=== PATIENT | male | born 1960 | race Caucasian/White ===

== ENCOUNTER 2020-03-19 10:46 | Emergency (ER) | payer MEDICAID ==
[2020-03-19 10:53] VITALS: BP 136/91
--- NOTE | 2020-03-19 12:38 | ED Physician Documentation ---
History of Present Illness - Stated complaint Stated Complaint: MALE - Chief complaint Chief Complaint: General - History obtained from History obtained from: Patient - History of Present Illness Timing: How many days ago (3) - Additonal information Additional information: 59-year-old male otherwise previously well has developed acute hemorrhoidal pain. He states he has had hemorrhoids periodically they have never bothered him like this. He states that about 3 days ago he started having severe pain associated with hemorrhoids that are stuck out and firm. No matter what he is put on them they have they hurt. He took a pain pill that someone gave him and it barely helped. Review of Systems Constitutional: denies: Fever Respiratory: denies: Cough GI: denies: Vomiting : denies: Dysuria Musculoskeletal: denies: Neck pain, Back pain, Extremity pain PD PAST MEDICAL HISTORY - Past Medical History Past Medical History: No - Past Surgical History Past Surgical History: No - Present Medications Home Medications: Ambulatory Orders Medication Instructions Recorded Confirmed Hydrocortisone [Anusol-Hc] 1 gm RC BID PRN #30 cream..g. 03/19/20 Oxycodone HCl/Acetaminophen 1 - 2 each PO Q6H PRN #14 tablet 03/19/20 [Percocet 5-325 mg Tablet] - Allergies Allergies/Adverse Reactions: Allergies Allergy/AdvReac Type Severity Reaction Status Date / Time No Known Drug Allergies Allergy Verified 03/19/20 10:53 - Social History Does the pt smoke?: Yes Smoking Status: Current every day smoker Does the pt drink ETOH?: Yes Does the pt have substance abuse?: No - POLST Patient has POLST: No PD ED PE NORMAL - Vitals Vital signs reviewed: Yes (hypertensive ) - General General: Alert and oriented X 3, No acute distress, Well developed/nourished - HEENT HEENT: Atraumatic, PERRL, EOMI - Respiratory Respiratory: No respiratory distress - Rectal Rectal: Other (There are 3 external hemorrhoids 2 of them appear thrombosed and are extremely tender the third appears to be a tag. There is no blood involved and the thrombosed hemorrhoids or not reducible.) - Derm Derm: Normal color, Warm and dry, No rash - Extremities Extremities: No deformity, No edema - Neuro Neuro: Alert and oriented X 3, routing equipment tender 2-12 intact, No motor deficit, No sensory deficit, Normal speech Eye Opening: Spontaneous Motor: Obeys Commands Verbal: Oriented GCS Score: 15 - Psych Psych: Normal mood, Normal affect Results - Vitals Vitals: Vital Signs - 24 hr 03/19/20 10:51 Temperature 36.7 C Heart Rate 74 Respiratory 16 Rate Blood Pressure 136/91 H O2 Saturation 97 Oxygen O2 Source Room air PD MEDICAL DECISION MAKING - ED course Complexity details: reviewed old records, considered differential, d/w patient ED course: 59-year-old male with thrombosed hemorrhoids that are more than 72 hours old. I discussed with the patient the usual time course of resolution of thrombosed hemorrhoid and the timing of a visit for this if it occurs again. I discussed with the patient reduction of his hemorrhoids when they are out and especially after hard bowel movement and I have encouraged him to use hydrocortisone when doing that. Departure - Departure Disposition: 01 Home, Self Care Clinical Impression: Thrombosed external hemorrhoids Condition: Stable Instructions: ED Hemorrhoids, ANUSOL-HC Suppositories Follow-Up: [facility] [Provider Group] Prescriptions: Hydrocortisone [Anusol-Hc] 1 gm RC BID PRN #30 cream..g. PRN Reason: Hemorrhoids Oxycodone HCl/Acetaminophen [Percocet 5-325 mg Tablet] 1 - 2 each PO Q6H PRN #14 tablet PRN Reason: pain
== END 2020-03-19 12:57 | disposition home or self-care (01) ==
LOC: ED 10:46
DX: K64.5 Perianal venous thrombosis (principal); K64.4 Residual hemorrhoidal skin tags; F17.200 Nicotine dependence, unspecified, uncomplicated; R03.0 Elevated blood-pressure reading, without diagnosis of hypertension
CPT/HCPCS: 99282; 99284

== ENCOUNTER 2020-03-20 07:25 | Emergency (ER) | payer MEDICAID ==
[2020-03-20] MEDS ORDERED: LIDOCAINE JELLY 2% 6 ML JEL.PF.APP TOP STA (07:42)
--- NOTE | 2020-03-20 07:45 | ED Physician Documentation ---
History of Present Illness - Stated complaint Stated Complaint: MALE - Chief complaint Chief Complaint: Allergic Rx - History obtained from History obtained from: Patient, Family - History of Present Illness Timing: How many days ago (4) - Additonal information Additional information: 59-year-old male developed severe rectal pain about 4 days ago related to a thrombosed hemorrhoid. He took 1 pain pill at that time and he has not had a bowel movement since. He came to the emergency department yesterday was diagnosed with the thrombosed hemorrhoid and was prescribed more pain medication. He comes in this morning complaining of constipation for 4 days and severe rectal pain. He has been straining at the commode without success. Review of Systems Constitutional: denies: Fever Eyes: denies: Decreased vision Ears: denies: Ear pain Nose: denies: Congestion Throat: denies: Sore throat Respiratory: denies: Cough GI: reports: Constipation. denies: Abdominal Pain, Nausea, Vomiting : denies: Dysuria, Frequency Skin: denies: Rash Musculoskeletal: denies: Neck pain, Back pain, Extremity pain PD PAST MEDICAL HISTORY - Past Surgical History Past Surgical History: No - Present Medications Home Medications: Ambulatory Orders Medication Instructions Recorded Confirmed Hydrocortisone [Anusol-Hc] 1 gm RC BID PRN #30 cream..g. 03/19/20 Oxycodone HCl/Acetaminophen 1 - 2 each PO Q6H PRN #14 tablet 03/19/20 [Percocet 5-325 mg Tablet] Lidocaine HCl [Alocane Emergency 2 ml TP Q4HR PRN #75 gel..ml. 03/20/20 Burn] - Allergies Allergies/Adverse Reactions: Allergies Allergy/AdvReac Type Severity Reaction Status Date / Time No Known Drug Allergies Allergy Verified 03/20/20 07:29 - Social History Does the pt smoke?: Yes Smoking Status: Current every day smoker Does the pt drink ETOH?: Yes Does the pt have substance abuse?: No - POLST Patient has POLST: No PD ED PE NORMAL - Vitals Vital signs reviewed: Yes (Hypertensive) - General General: Alert and oriented X 3, Well developed/nourished, Other (Appears to be in pain with casino games dealer tone and flattened affect) - HEENT HEENT: Atraumatic, PERRL, EOMI - Respiratory Respiratory: No respiratory distress - Abdomen Abdomen: Soft, Non tender, No organomegaly - Derm Derm: Normal color, Warm and dry, No rash - Extremities Extremities: No deformity, No edema - Neuro Neuro: Alert and oriented X 3, warehouse selector 2-12 intact, No motor deficit, No sensory deficit, Normal speech Eye Opening: Spontaneous Motor: Obeys Commands Verbal: Oriented GCS Score: 15 - Psych Psych: Normal mood Results - Vitals Vitals: Vital Signs - 24 hr 03/20/20 03/20/20 03/20/20 07:29 09:18 11:59 Temperature 36.4 C L 37.4 C Heart Rate 95 72 72 Respiratory 24 22 18 Rate Blood Pressure 165/71 H 125/82 H 133/72 H O2 Saturation 98 99 100 Oxygen O2 Source Room air PD MEDICAL DECISION MAKING - ED course Complexity details: reviewed results, re-evaluated patient, considered differential, d/w patient, d/w family ED course: Patient was administered lidocaine jelly to the rectum and a oil retention enema was administered without relief and a subsequent soapsuds enema was administered and eventually had significant relief. Patient feels much improved at the time of discharge. I have asked patient to stop the narcotic pain reliever and we have provided some lidocaine for him to use at home as he is having significant rectal pain with a thrombosed hemorrhoid. Departure - Departure Disposition: 01 Home, Self Care Clinical Impression: Constipation Qualifiers: Constipation type: drug induced constipation Qualified Code(s): K59.03 - Drug induced constipation Condition: Stable Instructions: ED Constipation Follow-Up: [facility] [Provider Group] Prescriptions: Lidocaine HCl [Alocane Emergency Burn] 2 ml TP Q4HR PRN #75 gel..ml. PRN Reason: Rectal Pain Discharge Date/Time: 03/20/20 12:03
[2020-03-20 12:00] VITALS: BP 133/72
== END 2020-03-20 12:03 | disposition home or self-care (01) ==
LOC: ED 07:25
DX: K59.03 Drug induced constipation (principal); T40.695A Adverse effect of other narcotics, initial encounter; K64.5 Perianal venous thrombosis; F17.200 Nicotine dependence, unspecified, uncomplicated
CPT/HCPCS: 99285

== ENCOUNTER 2020-03-20 16:18 | Inpatient (IN) | payer MEDICAID ==
[2020-03-20] MEDS ORDERED: HYDROmorphone 1 MG/ML CARPUJECT IVP STA ×2 (16:35→17:29)
[2020-03-20] MEDS ORDERED: ONDANSETRON 4 MG/2 ML VIAL IVP STA (16:35)
[2020-03-20] MEDS ORDERED: KETOROLAC 30 MG/ML VIAL IVP STA (16:35)
--- NOTE | 2020-03-20 16:36 | ED Physician Documentation ---
PD HPI ABD PAIN - Stated complaint Stated Complaint: MALE - Chief complaint Chief Complaint: Abd Pain - History obtained from History obtained from: Patient, Family - Additional information Additional information: For 4 days has developed severe abdominal and rectal pain. He was seen here and disimpacted with an enema. He says he felt better after discharge but developed much more severe pain again, feels bloated and also now has left flank pain. He is nauseous but has not vomited. No fevers. No history of abdominal surgeries. Review of Systems Ten Systems: 10 systems reviewed and negative Constitutional: reports: Reviewed and negative Eyes: reports: Reviewed and negative Ears: reports: Reviewed and negative Nose: reports: Reviewed and negative Throat: reports: Reviewed and negative PD PAST MEDICAL HISTORY - Past Surgical History Past Surgical History: No - Present Medications Home Medications: Ambulatory Orders Medication Instructions Recorded Confirmed Hydrocortisone [Anusol-Hc] 1 gm RC BID PRN #30 cream..g. 03/19/20 Oxycodone HCl/Acetaminophen 1 - 2 each PO Q6H PRN #14 tablet 03/19/20 [Percocet 5-325 mg Tablet] Lidocaine HCl [Alocane Emergency 2 ml TP Q4HR PRN #75 gel..ml. 03/20/20 Burn] - Allergies Allergies/Adverse Reactions: Allergies Allergy/AdvReac Type Severity Reaction Status Date / Time No Known Drug Allergies Allergy Verified 03/20/20 16:24 - Social History Does the pt smoke?: Yes Smoking Status: Current every day smoker Does the pt drink ETOH?: Yes Does the pt have substance abuse?: No - POLST Patient has POLST: No PD ED PE NORMAL - Vitals Vital signs reviewed: Yes - General General: Alert and oriented X 3, No acute distress, Other (uncomfortable) - HEENT HEENT: PERRL, EOMI - Neck Neck: Supple, no meningeal sign, No bony TTP - Cardiac Cardiac: RRR, No murmur - Respiratory Respiratory: No respiratory distress, Clear bilaterally - Abdomen Abdomen: Other (Mild diffuse tenderness with diminished bowel tones) - Rectal Rectal: Other (He has several external nonthrombosed hemorrhoids. There is no stool in the vault. Tender perirectal andrea Posterior and the left) - Back Back: No CVA TTP, No spinal TTP - Derm Derm: Normal color, Warm and dry - Extremities Extremities: No edema, No calf tenderness / cord - Neuro Neuro: Alert and oriented X 3, library technical assistant 2-12 intact, No motor deficit, No sensory deficit - Psych Psych: Normal mood, Normal affect Results - Vitals Vitals: Vital Signs - 24 hr 03/20/20 03/20/20 03/20/20 16:21 16:57 17:56 Temperature 36.2 C L Heart Rate 75 68 66 Respiratory 26 H 18 12 Rate Blood Pressure 135/120 H 151/87 H 129/63 O2 Saturation 100 100 98 03/20/20 03/20/20 18:05 18:30 Temperature 36.9 C Heart Rate 71 85 Respiratory 16 18 Rate Blood Pressure 125/60 138/75 H O2 Saturation 96 99 Oxygen O2 Source Room air - Labs Labs: Laboratory Tests 03/20/20 03/20/20 03/20/20 16:45 16:45 16:45 WBC 17.8 H RBC 4.21 L Hgb 12.5 L Hct 36.7 L MCV 87.2 MCH 29.7 MCHC 34.1 RDW 12.7 Plt Count 308 MPV 9.1 Neut # (Auto) 15.6 H Lymph # (Auto) 1.0 L Gove # (Auto) 1.0 Eos # (Auto) 0.0 Baso # (Auto) 0.1 Absolute Nucleated RBC 0.00 Nucleated RBC % 0.0 Sodium 130 L Potassium 3.9 Chloride 93 L Carbon Dioxide 23 Anion Gap 14.0 H BUN 10 Creatinine 1.0 Estimated GFR (MDRD) 76 L Glucose 143 H Lactic Acid Calcium 9.2 Total Bilirubin 2.2 H AST 42 ALT 55 Alkaline Phosphatase 119 Total Protein 6.7 Albumin 3.3 Globulin 3.4 Albumin/Globulin Ratio 1.0 Lipase 20 L Urine Color DARK YELLOW Urine Clarity CLEAR Urine pH 6.0 Ur Specific [place] 1.015 Urine Protein NEGATIVE Urine Glucose (UA) NEGATIVE Urine Ketones TRACE Urine Occult Blood NEGATIVE Urine Nitrite NEGATIVE Urine Bilirubin SMALL H Urine Urobilinogen 2 H Ur Leukocyte Esterase NEGATIVE Ur Microscopic Review NOT INDICATED Urine Culture Comments NOT INDICATED 03/20/20 16:58 WBC RBC Hgb Hct MCV MCH MCHC RDW Plt Count MPV Neut # (Auto) Lymph # (Auto) Gove # (Auto) Eos # (Auto) Baso # (Auto) Absolute Nucleated RBC Nucleated RBC % Sodium Potassium Chloride Carbon Dioxide Anion Gap BUN Creatinine Estimated GFR (MDRD) Glucose Lactic Acid 1.6 Calcium Total Bilirubin AST ALT Alkaline Phosphatase Total Protein Albumin Globulin Albumin/Globulin Ratio Lipase Urine Color Urine Clarity Urine pH Ur Specific [place] Urine Protein Urine Glucose (UA) Urine Ketones Urine Occult Blood Urine Nitrite Urine Bilirubin Urine Urobilinogen Ur Leukocyte Esterase Ur Microscopic Review Urine Culture Comments - Rads (name of study) CT A/P Radiology: EMP read contemporaneously (Perianal inflammatory change, this was discussed with Dr. Lundberg the radiologist farm operations manager and the differential includes necrotic mass or perirectal abscess. Bilateral hydronephrosis, right worse than left, full bladder.) PD MEDICAL DECISION MAKING - ED course ED course: 59-year-old gentleman had been seen twice for hemorrhoids and fecal impaction, now returns with severe pain in the flanks and still the abdomen and rectal area. He has no fecal impaction on exam but is tender in the perianal area without skin changes. CT with very large bladder, perirectal inflammation, and hydronephrosis. After the CT we did a voiding trial and postvoid residual was still quite high so Ashley was placed with resolution of his pain. I am concerned about rectal cancer versus rectal abscess and the surgeon was paged at 6:20 PM to see the patient, he is currently in surgery. Surgeon saw the patient and plans to admit on Cipro and Flagyl for colonoscopy and further work-up tomorrow. Departure - Departure Disposition: [facility] DC/Xfer Clinical Impression: Rachael-rectal abscess, Urinary retention Condition: Stable Record reviewed to determine appropriate education?: Yes
[2020-03-20 16:50] LABS: BASOPHILS # (AUTO) 0.1 10^3/uL (0.0-0.1); BASOPHILS % (AUTO) 0.3 %; EOSINOPHILS % (AUTO) 0.2 %; HGB - HEMOGLOBIN 12.5 g/dL (14.0-18.0); LYMPHOCYTES % (AUTO) 5.7 %; MEAN CORPUSCULAR HEMOGLOBIN 29.7 pg (27.0-31.0); MEAN CORPUSCULAR HGB CONC 34.1 g/dL (32.0-36.0); MEAN CORPUSCULAR VOLUME 87.2 fL (80.0-94.0); MEAN PLATELET VOLUME 9.1 fL (7.4-11.4); MONOCYTES % (AUTO) 5.4 %; NEUTROPHILS # (AUTO) 15.6 10^3/uL (1.5-6.6); NEUTROPHILS % (AUTO) 87.4 %; PLT - PLATELET COUNT 308 10^3/uL (130-450); RED BLOOD COUNT 4.21 10^6/uL (4.70-6.10); RED CELL DISTRIBUTION WIDTH 12.7 % (12.0-15.0); WHITE BLOOD COUNT 17.8 x10^3/uL (4.8-10.8)
[2020-03-20 16:52] LABS: GLUCOSE, URINE (UA) NEGATIVE (NEGATIVE); KETONES,URINE (UA) TRACE mg/dL (NEGATIVE); LEUKOCYTE ESTERASE, URINE NEGATIVE (NEGATIVE); NITRITE,URINE NEGATIVE (NEGATIVE); OCCULT BLOOD,URINE NEGATIVE (NEGATIVE); PROTEIN,URINE NEGATIVE (NEGATIVE); UROBILINOGEN,URINE 2 E.U./dL (NORMAL)
[2020-03-20 16:55] LABS: BILIRUBIN,URINE SMALL (NEGATIVE); ICTOTEST,URINE POSITIVE
[2020-03-20 16:56] LABS: CLARITY,URINE CLEAR (CLEAR)
[2020-03-20 17:02] LABS: ALBUMIN 3.3 g/dL (3.2-5.5); BILIRUBIN,TOTAL 2.2 mg/dL (0.2-1.0); CALCIUM 9.2 mg/dL (8.5-10.3); TOTAL PROTEIN 6.7 g/dL (6.7-8.2)
[2020-03-20] MEDS ORDERED: IOVERSOL 320 100 ML VIAL IVP ONE ×2 (17:02→18:24)
--- NOTE | 2020-03-20 17:42 | CT Report ---
PROCEDURE: Abdomen/Pelvis W INDICATIONS: IV only, diffuse abd pain CONTRAST: IV CONTRAST: Optiray 320 ml: 100 PO CONTRAST: *NO PO CONTRAST TECHNIQUE: After the administration of nonionic IV contrast, 5 mm thick sections acquired from the diaphragms to the symphysis. 5 mm thick coronal and sagittal reformats were acquired. For radiation dose reducti on, the following was used: automated exposure control, adjustment of mA and/or kV according to juice ent size. COMPARISON: None. FINDINGS: Image quality: Excellent. ABDOMEN: Lung bases: Lung bases are clear. Heart size is normal. A small hiatal hernia is incidentally note d. Solid organs: Liver and spleen are normal in size and enhancement. Diffuse fatty liver infiltration can be seen. Gallbladder wall does not appear thickened. Biliary system is non dilated. Pancre as enhances normally. No adrenal nodules. Kidneys demonstrate normal size and enhancement. There is mild to moderate right-sided and mild left- sided hydronephrosis seen. 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 The 2 ureters appear t o join proximally. Peritoneum and bowel: Bowel loops demonstrate normal wall thickness and caliber. No free fluid or a ir. A normal appendix is incidentally noted. Nodes and vessels: No retroperitoneal or mesenteric a denopathy by size criteria. Aorta and inferior vena cava are normal in size. The SMA is patent. No significant portal vein abnormality is seen. Miscellaneous: No ventral hernias. PELVIS: Genitourinary: Bladder wall thickness is normal. Miscellaneous: No inguinal adenopathy. Bilateral fat-containing inguinal hernias are seen, right wo rse than left. There is an intramuscular lipoma seen within the anterior left thigh. Abnormal inflammatory change and prominent soft tissue can be seen within the perianal region, which is consistent with the given history of hemorrhoids. Bones: No suspicious bony lesions. No vertebral body compression fractures. Relatively prominent l umbar spine degenerative changes are seen. Milder degenerative changes are seen elsewhere. IMPRESSION: Abnormal soft tissue and inflammatory change can be seen within the perianal region. Thi s is consistent with the given clinical history of hemorrhoids. Bilateral hydronephrosis is seen, right worse than left. 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
[2020-03-20] MEDS ORDERED: metroNIDAZOLE 500 MG/100 ML 500 MG/100 ML BAG IV ONE (18:57)
[2020-03-20] MEDS ORDERED: CIPROFLOXACIN 400 MG/200 ML 400 MG/200 ML BAG IV STA (18:57)
[2020-03-20] MEDS ORDERED: SODIUM CHLORIDE FLUSH 0.9% 10 ML SYRINGE IVP PRN (22:16)
[2020-03-20] MEDS ORDERED: ONDANSETRON 4 MG/2 ML VIAL IVP PRN (22:16)
--- NOTE | 2020-03-20 22:55 | SURGERY HX AND PHYSICAL(T) ---
Surgical History & Physical - Chief Complaint/HPI Chief Complaint: Anorectal pain History of Present Illness: 59-year-old male who presents with significant pelvic discomfort/levator spasm. Patient with no significant past medical history no immunocompromise state, no diabetes, no steroid dependence, no other concerning features. Patient denies any past history of perianal discomfort other than what he reports are "hemorrhoids". He reports dysuria and difficulty voiding and has been placed for Ashley catheter with 1000 cc. Surgical consult with concerns for pain and perianal discomfort. Patient with febrile episodes and leukocytosis. - PMH/PSH/Social Hx Does the pt have a hx of MRSA?: No Neurological History: None Eyes, Ears, Nose, Throat: None Cardiovascular: None Respiratory: None Skin: None Endocrine/Autoimmune: None Gastrointestinal: Hemorrhoids, Other Urinary: Kidney stones Musculoskeletal: None Blood Disorders: None Psychiatric: None Smoking Status: Current every day smoker Does the pt drink ETOH?: Yes Frequency: Occasional Does the pt have substance abuse?: No - Family Hx Family Hx: Other (DENIES family history of colorectal cancer, inflammatory bowel disease, Crohn's disease/ulcerative colitis.) - Home Meds and Allergies Home Medications: No Known Home Medications 03/21/20 Allergies/Adverse Reactions: Allergies Allergy/AdvReac Type Severity Reaction Status Date / Time No Known Drug Allergies Allergy Verified 03/20/20 16:24 - Review of Systems Constitutional: Fatigue, Fever Cardiac: No: AFIB, CHF Respiratory: No: Shortness of breath, Cough Gastrointestinal: Other (Severe perianal pain and discomfort). No: Nausea, Vomiting, Difficulty swallowing, Abdominal pain Gentinourinary: Dysuria, Frequency, Urgency, Retention - Vital Signs Heart Rate: 71 Blood Pressure: 102/55 Temperature: 37.3 C Respiratory Rate: 19 O2 Saturation: 97 Weight (kg): 97.522 kg Height: 1.75 m - Physical Exam General Appearance: positive: Alert, Mild distress Eyes Bilatera: positive: Normal inspection, PERRL, EOMI ENT: positive: ENT inspection nml, Pharynx nml, No signs of dehydration Neck: positive: Nml inspection Respiratory: positive: Chest non-tender, No respiratory distress, Breath sounds nml. negative: Wheezes, Rales, Rhonchi Cardiovascular: positive: Regular rate & rhythm Abdomen: positive: Non-tender, Nml bowel sounds. negative: No distention, Tenderness, Guarding, Rebound Rectal: positive: Tenderness, Nodule, Hemorrhoid, Other (SEE BELOW) Skin: positive: Color nml Extremities: positive: Non-tender, Full ROM, Nml appearance, No pedal edema Neurologic/Psychiatric: positive: Oriented x3, CN's nml (2-12), Motor nml, Sensation nml, Mood/affect nml Comments/Other: Rectal exam Inspection: External Hemorrhoids -none Fissure in ano - suspected in posterior midline with chronic sentinel tags Erythema (perianal) - extensive perianal Other - perianal fluctuance both posterior midline as well as bilateral left and right progressing towards the perineum Palpation: Fluctuance - extensive posterior and bilateral Palpable cord - palpable midline cord Scar tissue -none Induration - yes Digital Rectal Exam: Rectal Tone - normal Fluctuance - extensive circumferential Sphincter - intact with no diminished tone Anoscopy: Deferred - Patient Review Patient Review: Problems were reviewed with the patient during this visit. Medications were reviewed with the patient during this visit. Allergies were reviewed this patient during this visit. Pertinent Tests Reviewed: All pertitent test for this patient were reviewed. 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 Patient with lucid leukocytosis. Patient with urinary retention likely secondary to the levator spasm from perianal/pelvic sepsis. He has fever, leukocytosis, and tachycardia. He also has endorgan dysfunction as a relates to urinary retention and associated acute renal failure. Patient will need to be admitted with Ashley catheter in place, IV antibiotics, and plan for operative intervention. With regard to the patient's likely fistula which in these circumstances are almost always transsphincteric, I will also recommend performing colonoscopy for random biopsies to rule out inflammatory bowel disease. Plan going forward is as follows: 1. N.p.o., IV fluids, IV antibiotics. 2. Plan operative intervention to include intraoperative colonoscopy, random biopsies, exam under anesthesia, incision and drainage, likely seton placement, amongst others. 3. 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 4. Pain management. CT abdomen pelvis impressions: 1. Abnormal soft tissue and inflammatory change can be seen within the perianal region. This consistent with the given history of hemorrhoids. Please note an addendum was made and listed abscess should be included in the differential for perianal soft tissue prominence and inflammation. On my review of the imaging there was also concerns for something consistent with a horseshoe abscess. 2. Bilateral hydronephrosis right worse than left. Please note that clinically the patient was noted for obstructive uropathy with significant dilated bladder and a post void residual consistent with 1000 cc. 3. 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 Please note that voice recognition software was used to transcribe this note and inadvertent errors might persist in spite of review and editing. I am obliged to you for your attention. I am thankful to you for allowing me to participate with you in this care of this patient.
[2020-03-20] MEDS ORDERED: metroNIDAZOLE 500 MG/100 ML 500 MG/100 ML BAG IV SCH (23:00)
[2020-03-21] MEDS: ACETAMINOPHEN 1,000 MG/100 ML 100 ML IV SCH ×4 (00:49→17:23)
[2020-03-21] MEDS: HEPARIN 5,000 UNIT/ML VIAL SUBQ SCH ×4 (00:53→20:25)
[2020-03-21] MEDS: D5NS W/20 MEQ KCL 1,000 ML IV SCH ×4 (01:36→22:14)
[2020-03-21] MEDS: SODIUM CHLORIDE FLUSH 0.9% 10 ML SYRINGE IVP SCH ×3 (01:37→17:27)
[2020-03-21] MEDS: methocarbamoL 500 MG TABLET PO SCH ×4 (01:39→17:27)
[2020-03-21] MEDS: METOCLOPRAMIDE 10 MG/2 ML VIAL IVP SCH ×4 (01:39→17:27)
[2020-03-21] MEDS ORDERED: SODIUM/POTASSIUM/MAG SULFATES 354 ML PREP KIT PO SCH ×2 (05:00→12:00)
[2020-03-21 05:05] LABS: BASOPHILS % (AUTO) 0.3 %; EOSINOPHILS # (AUTO) 0.2 10^3/uL (0.0-0.7); EOSINOPHILS % (AUTO) 1.4 %; HGB - HEMOGLOBIN 11.6 g/dL (14.0-18.0); LYMPHOCYTES # (AUTO) 1.4 10^3/uL (1.5-3.5); LYMPHOCYTES % (AUTO) 9.9 %; MEAN CORPUSCULAR HEMOGLOBIN 29.7 pg (27.0-31.0); MEAN CORPUSCULAR HGB CONC 33.2 g/dL (32.0-36.0); MEAN CORPUSCULAR VOLUME 89.3 fL (80.0-94.0); MEAN PLATELET VOLUME 8.9 fL (7.4-11.4); MONOCYTES # (AUTO) 0.8 10^3/uL (0.0-1.0); MONOCYTES % (AUTO) 5.6 %; NEUTROPHILS # (AUTO) 11.6 10^3/uL (1.5-6.6); NEUTROPHILS % (AUTO) 82.1 %; PLT - PLATELET COUNT 308 10^3/uL (130-450); RED BLOOD COUNT 3.91 10^6/uL (4.70-6.10); RED CELL DISTRIBUTION WIDTH 12.9 % (12.0-15.0); WHITE BLOOD COUNT 14.2 x10^3/uL (4.8-10.8)
[2020-03-21 05:22] LABS: ALBUMIN 2.8 g/dL (3.2-5.5); ALBUMIN/GLOBULIN RATIO 0.9 (1.0-2.2); BILIRUBIN,TOTAL 1.3 mg/dL (0.2-1.0); CALCIUM 8.5 mg/dL (8.5-10.3); TOTAL PROTEIN 5.8 g/dL (6.7-8.2)
[2020-03-21] MEDS: oxyCODONE 5 MG TABLET PO PRN ×2 (05:45→11:05)
[2020-03-21] MEDS: polyethylene glycoL 3350 17 GM PACKET PO SCH ×2 (06:29→09:07)
[2020-03-21] MEDS: CIPROFLOXACIN 400 MG/200 ML 400 MG/200 ML BAG IV SCH ×2 (06:29→20:17)
[2020-03-21] MEDS ORDERED: CIPROFLOXACIN 400 MG/200 ML 400 MG/200 ML BAG IV SCH (07:00)
[2020-03-21] MEDS: metroNIDAZOLE 500 MG/100 ML 500 MG/100 ML BAG IV SCH ×2 (08:51→17:22)
[2020-03-21] MEDS: DOCUSATE SODIUM 100 MG CAPSULE PO SCH ×2 (09:06→20:24)
--- NOTE | 2020-03-21 12:46 | PHARMACY PROGRESS NOTE ---
- Best Possible Medication History Admit Date and Time: 03/20/20 9835 Processed by: Pharmacy Medication History completed: Yes Patient Interview: Completed Secondary Source(s): Physician records (PATIENT INTERVIEWED BY WILDLIFE CONSERVATIONIST. PATIENT CONFIRMS HE DOES NOT TAKE HOME MEDICAITONS ), Pharmacy records, Insurance records As the person ultimately responsible for medication therapy, providers are able to order a medication from an existing home medication list in [facility] via the "Reconcile Routine" prior to Confirmation of that medication by client support consultant. Such practice is discouraged except when the physician, in their clinical judg ment, deems that a medical need exists for a medication without regard to previous use.
--- NOTE | 2020-03-21 14:44 | ANESTHESIA ---
Pre-Anesthesia VS, & Labs - Diagnosis Rachael rectal abcess - Procedure Colonoscopy, I&D of Abcess Vital Signs: Temp Pulse Resp BP Pulse Ox 36.9 C 62 19 166/62 H 96 03/21/20 13:00 03/21/20 14:00 03/21/20 13:00 03/21/20 14:00 03/21/20 13:00 Height: 5 ft 10 in Weight (kg): 95.254 kg Body Mass Index: 30.1 BMI Classification: Obese - Lab Results Current Lab Results: Laboratory Tests 03/21/20 04:50: Sodium 135, Potassium 4.0, Chloride 101, Carbon Dioxide 23, Anion Gap 11.0, BUN 11, Creatinine 1.0, Estimated GFR (MDRD) 76 L, Glucose 159 H , Calcium 8.5, Total Bilirubin 1.3 H, AST 29, ALT 44, Alkaline Phosphatase 97, Total Protein 5.8 L, Albumin 2.8 L, Globulin 3.0, Albumin/Globulin Ratio 0.9 L 03/21/20 04:50: WBC 14.2 H, RBC 3.91 L, Hgb 11.6 L, Hct 34.9 L, MCV 89.3, MCH 29.7, MCHC 33.2, RDW 12.9, Plt Count 308, MPV 8.9, Neut # (Auto) 11.6 H, Lymph # (Auto) 1.4 L, [place] # (Auto) 0.8, Eos # (Auto) 0.2, Baso # (Auto) 0.0, Absolute Nucleated RBC 0.00, Nucleated RBC % 0.0 03/20/20 16:58: Lactic Acid 1.6 03/20/20 16:45: Sodium 130 L, Potassium 3.9, Chloride 93 L, Carbon Dioxide 23, Anion Gap 14.0 H, BUN 10, Creatinine 1.0, Estimated GFR (MDRD) 76 L, Glucose 143 H, Calcium 9.2, Total Bilirubin 2.2 H, AST 42, ALT 55, Alkaline Phosphatase 119, Total Protein 6.7, Albumin 3.3, Globulin 3.4, Albumin/Globulin Ratio 1.0, Lipase 20 L 03/20/20 16:45: WBC 17.8 H, RBC 4.21 L, Hgb 12.5 L, Hct 36.7 L, MCV 87.2, MCH 29 .7, MCHC 34.1, RDW 12.7, Plt Count 308, MPV 9.1, Neut # (Auto) 15.6 H, Lymph # (Auto) 1.0 L, [place] # (Auto) 1.0, Eos # (Auto) 0.0, Baso # (Auto) 0.1, Absolute Nucleated RBC 0.00, Nucleated RBC % 0.0 Fish Bones: 03/21/20 04:50 03/21/20 04:50 Home Medications and Allergies Home Medications: Ambulatory Orders No Known Home Medications 03/21/20 Active Medications Docusate Sodium (Colace 100mg Capsule) 100 mg PO BID [facility] Last Admin: 03/21/20 09:06 Dose: 100 mg Documented by: Heparin Sodium (Porcine) () 5,000 unit SUBQ TID [facility] Last Admin: 03/21/20 14:28 Dose: Not Given Documented by: Ciprofloxacin (Cipro 400 Mg/200 Ml) 400 mg in 200 mls @ 200 mls/hr IV Q12H [facility] Last Infusion: 03/21/20 09:15 Dose: Infused Documented by: Potassium Chloride/Dextrose/Sod Cl () 1,000 mls @ 125 mls/hr IV .Q8H [facility] Last Admin: 03/21/20 11:26 Dose: 125 mls/hr Documented by: Metronidazole (Flagyl 500 Mg/100 Ml) 500 mg in 100 mls @ 100 mls/hr IV Q8H [facility] Last Infusion: 03/21/20 10:06 Dose: Infused Documented by: Acetaminophen (Ofirmev) 100 mls @ 400 mls/hr IV Q6H [facility] Last Infusion: 03/21/20 11:33 Dose: Infused Documented by: Methocarbamol (Robaxin) 500 mg PO Q6HR [facility] Last Admin: 03/21/20 11:25 Dose: 500 mg Documented by: Metoclopramide HCl (Reglan Inj) 10 mg IVP Q6HR [facility] Last Admin: 03/21/20 11:25 Dose: 10 mg Documented by: Ondansetron HCl (Zofran Inj) 4 mg IVP Q6HR PRN PRN Reason: Nausea / Vomiting Oxycodone HCl (Roxicodone) 5 mg PO Q4HR PRN PRN Reason: PAIN Last Admin: 03/21/20 11:05 Dose: 5 mg Documented by: Sodium Chloride (Normal Saline Flush 0.9%) 10 ml IVP 0100,0900,1700 [facility] Last Admin: 03/21/20 09:07 Dose: 10 ml Documented by: Sodium Chloride (Normal Saline Flush 0.9%) 10 ml IVP PRN PRN PRN Reason: NEEDED PER PROVIDER ORDERS No Known Home Medications 03/21/20 Allergies/Adverse Reactions: Allergies Allergy/AdvReac Type Severity Reaction Status Date / Time No Known Drug Allergies Allergy Verified 03/20/20 16:24 Anes History & Medical History - Anesthetic History Anesthesia Complications: reports: Other-see comment (No anesthetic history) Family history of Anesthesia Complications: Denies Family history of Malignant Hyperthermia: Denies - Medical History Cardiovascular: reports: None Pulmonary: reports: None Gastrointestinal: reports: Hemorrhoids, Other Urinary: reports: Retention, Renal insuffiency (GFR 76), Kidney stones Neuro: reports: None Musculoskeletal: reports: None Endocrine/Autoimmune: reports: None Blood Disorders: reports: None Skin: reports: None Smoking Status: Never smoker Psychosocial: reports: No issues indicated History of Cancer?: No Exam General: Alert, Oriented x3, Cooperative, No acute distress Dental: Poor dentition (Chipped upper and lower, broken) Mouth Openin Fingerbreadth Neck Mobility: Normal Mallampati classification: III Thyromental Distance: 4-6 cm Respiratory: Lungs clear, Normal breath sounds, No respiratory distress, No accessory muscle use Cardiovascular: Regular rate, Normal S1, Normal S2, No murmurs Mental/Cognitive Status: Alert/Oriented X3, Normal for patient Cognitive Status: Within normal limits Plan Anesthesia Type: General Consent for Procedure(s) Verified and Reviewed: Yes Code Status: Attempt Resuscitation ASA classification: 2-Mild systemic disease Is this case an emergency?: Yes (Unscheduled)
[2020-03-21] MEDS ORDERED: NALOXONE 0.4 MG/ML VIAL IVP PRN (14:56)
[2020-03-21] MEDS ORDERED: ATROPINE ABBOJECT 1 MG/10 ML SYRINGE IVP PRN (14:56)
[2020-03-21] MEDS ORDERED: METOCLOPRAMIDE 10 MG/2 ML VIAL IVP PRN (14:56)
[2020-03-21] MEDS ORDERED: ePHEDrine 50 MG/ML VIAL IVP PRN (14:56)
[2020-03-21] MEDS ORDERED: HYDROmorphone 0.5 MG/0.5 ML SYRINGE IVP PRN (14:56)
[2020-03-21] MEDS ORDERED: fentaNYL 100 MCG/2 ML VIAL IVP PRN (14:56)
[2020-03-21] MEDS ORDERED: MORPHINE 2 MG/ML CARPUJECT IVP PRN (14:56)
[2020-03-21] MEDS ORDERED: ONDANSETRON 4 MG/2 ML VIAL IVP PRN (14:56)
[2020-03-21] MEDS ORDERED: LACTATED RINGERS 1,000 ML IV SCH (15:00)
[2020-03-21] MEDS ORDERED: LIDOCAINE 1%-EPI 1:100000 20 ML MDV ONE (15:13)
[2020-03-21] MEDS ORDERED: BUPIVACAINE 0.25% PF 30 ML VIAL ONE (15:13)
[2020-03-21] MEDS ORDERED: LIDOCAINE OINTMENT 5% 35.44 GM TUBE ONE (15:13)
[2020-03-21] MEDS ORDERED: BUPIVACAINE 0.25% PF 30 ML VIAL SUBQ ONE (16:15)
[2020-03-21] MEDS ORDERED: LIDOCAINE 1%-EPI 1:100000 30 ML MDV SUBQ ONE (16:15)
[2020-03-21] MEDS ORDERED: LACTATED RINGERS 300 ML IV ONE (16:38)
--- NOTE | 2020-03-21 16:59 | ANESTHESIA POST OP EVALUATION ---
Anesthesia Post Eval - Post Anesthesia Eval Vitals: Last Vital Signs Temp 37.3 C 03/21/20 16:58 Pulse 71 03/21/20 16:58 Resp 19 03/21/20 16:58 BP 102/55 L 03/21/20 16:58 Pulse Ox 97 03/21/20 16:58 CV Function Including HR & BP: positive: Stable Pain Control: positive: Satisfactory Nausea & Vomiting: positive: Negative Mental Status: positive: Baseline Respiratory Status: Airway Patent Hydration Status: Satisfactory (Returned to wells awake and alert. Comfortable.) Anesthesia Complications: positive: None
--- NOTE | 2020-03-21 17:09 | OPERATIVE REPORT ---
Operative Report - General Admit Date: 03/20/20 Planned Procedure: PLANNED Procedure type: * Exam under anesthesia. * Pudental nerve block. * Incision and drainage of Perirectal Abscess. * Intraoperative colonoscopy with random biopsies * Ileoscopy with random biopsies. Pre-Op Diagnosis: LEVATOR SPASM, PERIANAL ABSCESS, SEPSIS Procedure Performed: Procedure type: * Exam under anesthesia. * Pudental nerve block. * Incision and drainage of Perirectal Abscess. * Modified Popeye procedure with posterior drainage and bilateral counter incisions. * Seton placement. * Intraoperative colonoscopy with random biopsies * Ileoscopy with random biopsies. Postoperative Diagnosis: * Perirectal Abscess. * Horseshoe extension of posterior rectal infection * Fistula in ano * Sepsis * Severe anal pain/levator spasm. * Early necrotizing infection. * Large posterior fissure, chronic, with sentinel tags Post Op Diagnosis: SAME; HORSE SHOE ABSCESS, [id number], NO COLITIS/ILEITIS - Procedure Note Primary Surgeon: STACIA Anesthesia Provider: EULOGIO Anesthesia Technique: General LMA, Local Pathology: 1. TERMINAL ILEAL BX 2. RANDOM COLON BX 3. PERIANAL ABSCESS FOR C & S 4. POSTERIOR SENTINEL TAGS FOR PATHOLOGY Estimated Blood Loss (mL): 20 Drain/Tube Type: Other (ONE CONTINUOUS PACKING STRIP ACROSS ALL THREE INCISION AND DRAINAGE INCISIONS; ANAL PACKING IN THE MANNER OF A TAMPON WITH SURGIFOAM AND SURGICEL) Indications: * Perirectal Abscess. * Horseshoe extension of posterior rectal infection * Fistula in ano * SIRS/Sepsis WITH LEUKOCYTOSIS, FEVER, TACHYCARDIA * Severe anal pain/levator spasm Findings: Description of techniques, and findings: Deep posterior anal space drained via one incision, seton x2 placed through same incision, WITH LARGE VOLUME OF PURULENT DRAINAGE. Bilateral counter incisions made and ANTERIOR EXTENSION NOTED TO BE IN CONTINUITY WITH POSTERIOR abscess cavitY, VIS-A-VIS both communicated to deep posterior anal space. Both lateral incisions packed with gauze. Large volume of purulent drainage produced. Left area, which was region of maximal fullness and induration, revealed a large cavity, with necrotic debris, concerning for early necrotizing infection. EXTENSIVELY WASHED OUT. INTRAOPERATIVE COLONOSCOPY WITH NO ILEITIS, NO COLITIS, NO PROCTITIS. RANDOM BIOPSIES PERFORMED. LARGE posterior fissure that likely fistulized. SKIN/SENTINEL TAGS, POSTERIOR, EXCISED. Complications: NONE - Other Other Information/Narrative: Operative Report: The patient was taken to the operating room, placed supine on operating table. Bilateral lower extremity serial compression devices were placed. After informed consent was confirmed and obtained, patient was induced for anesthesia as per above. The patient was placed in high lithotomy with candy-cane stirrups. At this time a time-out was called and the patient was performed for an intraoperative rigid/flexible endoscopy (see above for details). PLEASE SEE ENDOSCOPY REPORT FOR DETAILS OF THIS PORTION OF THE OPERATIVE INTERVENTION. Digital rectal findings are listed above as well. Patient was thereafter prepped and draped in usual sterile fashion. A time-out was again called and agreed to by all in the room. Local was instilled for a perioperative block. Perioperative antibiotics were administered as listed above within an hour of incision if the patient had not already been dosed preoperatively as scheduled. Circumferential exam and evaluation of the perianal skin revealed findings as per above consistent with perianal sepsis with associated fluctuance concerning for an abscess in the posterior deep postanal space. Access to the space was achieved via midline incision between the coccyx and the anus spreading the superficial external muscle/sphincter to enter this deep space. Once decompressed, the fluid was sent for culture and sensitivity. The unique characteristics of the cavity are listed above under findings. With the abscess decompressed, an opening was also made in the posterior midline in the lower half of the internal sphincter muscle was divided to drain the anal gland in which the infection originated. We thereafter proceeded to evaluate for the presence of an associated fistulous communication for which there was a clinical suspicion. Thus, the fistula probe was inserted into the cavity which, together with diluted hydrogen peroxide, were utilized to identify the internal opening and if extravasation was clearly appreciated, it was used to guide the fistula probe towards intubating the track. Classification is listed above as are the findings. THERE WAS INDEED A FISTULA FOR WHICH SETON WOULD BE INDICATED. The probe was thereafter used to thread a silastic-vessel loop to act as a seton; this was doubled on itself and sized to fit. Once evaluated for any other tracts, if any, or extension if present (see above for both) the vessel loops were appropriately sized using silk ligatures. The external openings were assured for appropriately opening and sent for pathology as well if indicated. Counter-incisions were made over each issue anal fossa to allow appropriate drainage of the anterior extractions of the abscess. Please see above for the extent and location of these drainage sites. Circumferential exam was again performed without any evidence of bleeding or other pathology. 1 sheets of Surgicel WRAPED ABOUT GELFOAM were placed in the anal canal for hemostasis. The patient tolerated the procedure well for which there was no complication. All counts correct for sponges, needles, and instruments. The patient was taken to the post anesthesia care unit in stable condition. PUDENDAL BLOCK PERFORMED. PATIENT TOLERATED WELL. PACKED PLACED, ONE CONTINUOUS STRIP.
[2020-03-22] MEDS: methocarbamoL 500 MG TABLET PO SCH ×4 (01:15→19:12)
[2020-03-22] MEDS: ACETAMINOPHEN 1,000 MG/100 ML 100 ML IV SCH ×4 (01:20→18:11)
[2020-03-22] MEDS: METOCLOPRAMIDE 10 MG/2 ML VIAL IVP SCH ×4 (01:21→19:12)
[2020-03-22] MEDS: metroNIDAZOLE 500 MG/100 ML 500 MG/100 ML BAG IV SCH ×3 (01:21→16:56)
[2020-03-22] MEDS: SODIUM CHLORIDE FLUSH 0.9% 10 ML SYRINGE IVP SCH ×3 (01:25→18:40)
[2020-03-22] MEDS: CIPROFLOXACIN 400 MG/200 ML 400 MG/200 ML BAG IV SCH ×2 (06:59→19:24)
[2020-03-22] MEDS: HEPARIN 5,000 UNIT/ML VIAL SUBQ SCH ×3 (07:00→21:15)
[2020-03-22] MEDS: D5NS W/20 MEQ KCL 1,000 ML IV SCH ×2 (07:03→21:17)
[2020-03-22] MEDS: DOCUSATE SODIUM 100 MG CAPSULE PO SCH ×2 (10:21→21:16)
[2020-03-22] MEDS: oxyCODONE 5 MG TABLET PO PRN ×2 (15:15→19:24)
[2020-03-23] MEDS: SODIUM CHLORIDE FLUSH 0.9% 10 ML SYRINGE IVP SCH ×3 (00:07→17:43)
[2020-03-23] MEDS: METOCLOPRAMIDE 10 MG/2 ML VIAL IVP SCH ×4 (00:46→18:15)
[2020-03-23] MEDS: metroNIDAZOLE 500 MG/100 ML 500 MG/100 ML BAG IV SCH ×3 (00:46→17:52)
[2020-03-23] MEDS: methocarbamoL 500 MG TABLET PO SCH ×4 (00:46→18:15)
[2020-03-23] MEDS: ACETAMINOPHEN 1,000 MG/100 ML 100 ML IV SCH (02:12)
[2020-03-23] MEDS: HEPARIN 5,000 UNIT/ML VIAL SUBQ SCH ×2 (06:22→14:26)
[2020-03-23] MEDS: CIPROFLOXACIN 400 MG/200 ML 400 MG/200 ML BAG IV SCH (06:23)
--- NOTE | 2020-03-23 07:52 | PROVIDER PROGRESS NOTE ---
Progress Note Subjective: Postoperative day #1 status post intraoperative colonoscopy and modified Popeye procedure first horseshoe abscess. Doing significantly better. Ashley remains in place. Packing in place as well. Objective Patient afebrile, hemodynamically acceptable General Appearance: positive: No acute distress Eyes Bilateral: positive: Normal inspection ENT: positive: ENT inspection nml Neck: positive: Nml inspection Respiratory: positive: Chest non-tender, No respiratory distress, Breath sounds nml. negative: Wheezes, Rales, Rhonchi Cardiovascular: positive: Regular rate & rhythm Abdomen: positive: No distention, Other. 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 Posterior midline incision as well as bilateral counterincisions in the perianal skin packed. No induration, no undrained fluctuance, no significant erythema. Cultures pending Impression/Plan: Postoperative day #1 status post below listed procedures, plan going forward is as follows: (1) GI - IVF, bowel regimen, advance diet as tolerated. GI ppx. Opiate sparring analgesia. (2) SURGERY -continue local wound care with dry sterile gauze top dressing. Continue setons in place pending definitive therapy by advancement flap to avoid dividing sphincter and affecting long-term continence. Remove packing tomorrow. (3) Renal/Lytes - continue IVF. Renal indices within normal limits. Trial of void. We will plan Flomax. (4) Respiratory - O2 as necessary. Continue IS. (5) Heme - Will continue with DVT ppx. H/H stable. (6) Cardiovascular - HD acceptable. (7) Neuro - Opiate sparring analgesia. Antispasmodics with Robaxin. Toradol. Neuropathic agents. (8) Immune/Infectious Disease - continue Cipro and Flagyl for 14 days. (9) Disposition - within the next 24 hours discharge with plan follow-up
--- NOTE | 2020-03-23 07:52 | DISCHARGE SUMMARY ---
Discharge Summary Admit Date: 03/20/20 Discharge Date: 03/23/20 Discharging Provider: Francisco Code Status: Attempt Resuscitation Condition at Discharge: Stable Discharge Disposition: 01 Home, Self Care - DIAGNOSES Admission Diagnoses: 1. Perianal abscess 2. Horseshoe extension 3. Levator spasm 4. Fistula and anal train sphincteric 5. Sepsis in the setting of Sirs with anorectal source 6. Obstructive Uropathy with hydronephrosis Discharge Diagnoses with Status of Each Condition: 1. Perianal abscess: RESOLVED 2. Horseshoe extension: RESOLVED 3. Levator spasm: RESOLVED 4. Fistula and anal train sphincteric: PLACED for seton pending additional intervention 5. Sepsis in the setting of Sirs with anorectal source: RESOLVED 6. Obstructive Uropathy with hydronephrosis: RESOLVED - HPI History of Present Illness: 59-year-old male who presents with significant pelvic discomfort/levator spasm. Patient with no significant past medical history no immunocompromise state, no diabetes, no steroid dependence, no other concerning features. Patient denies any past history of perianal discomfort other than what he reports are "hemorrhoids". He reports dysuria and difficulty voiding and has been placed for Ashley catheter with 1000 cc. Surgical consult with concerns for pain and perianal discomfort. Patient with febrile episodes and leukocytosis. 59-year-old male who presents with what appears to be a horseshoe abscess with anterior extension bilaterally. Patient with lucid leukocytosis. Patient with urinary retention likely secondary to the levator spasm from perianal/pelvic sepsis. He has fever, leukocytosis, and tachycardia. He also has endorgan dysfunction as a relates to urinary retention and associated acute renal failure. Patient will need to be admitted with Ashley catheter in place, IV antibiotics, and plan for operative intervention. With regard to the patient's likely fistula which in these circumstances are almost always transsphincteric, I will also recommend performing colonoscopy for random biopsies to rule out inflammatory bowel disease. Plan going forward is as follows: 1. N.p.o., IV fluids, IV antibiotics. 2. Plan operative intervention to include intraoperative colonoscopy, random biopsies, exam under anesthesia, incision and drainage, likely seton placement, amongst others. 3. 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 4. Pain management. CT abdomen pelvis impressions: 1. Abnormal soft tissue and inflammatory change can be seen within the perianal region. This consistent with the given history of hemorrhoids. Please note an addendum was made and listed abscess should be included in the differential for perianal soft tissue prominence and inflammation. On my review of the imaging there was also concerns for something consistent with a horseshoe abscess. 2. Bilateral hydronephrosis right worse than left. Please note that clinically the patient was noted for obstructive uropathy with significant dilated bladder and a post void residual consistent with 1000 cc. 3. 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 Please note that voice recognition software was used to transcribe this note and inadvertent errors might persist in spite of review and editing. I am obliged to you for your attention. I am thankful to you for allowing me to participate with you in this care of this patient. - CONSULTS | PROCEDURES Procedures: Procedure type: Exam under anesthesia. Pudental nerve block. Incision and drainage of Perirectal Abscess. Modified Popeye procedure with posterior drainage and bilateral counter incisions. Seton placement. Intraoperative colonoscopy with random biopsies Ileoscopy with random biopsies. Postoperative Diagnosis: Perirectal Abscess. Horseshoe extension of posterior rectal infection Fistula in ano Sepsis Severe anal pain/levator spasm. Early necrotizing infection. Large posterior fissure, chronic, with sentinel tags NO COLITIS/ILEITIS - HOSPITAL COURSE Hospital Course: 59-year-old male who presents with significant pelvic discomfort/levator spasm. Patient with no significant past medical history no immunocompromise state, no diabetes, no steroid dependence, no other concerning features. Patient denies any past history of perianal discomfort other than what he reports are "hemorrhoids". He reports dysuria and difficulty voiding and has been placed for Ashley catheter with 1000 cc. Surgical consult with concerns for pain and perianal discomfort. Patient with febrile episodes and leukocytosis. 59-year-old male who presents with what appears to be a horseshoe abscess with anterior extension bilaterally. Patient with lucid leukocytosis. Patient with urinary retention likely secondary to the levator spasm from perianal/pelvic sepsis. He has fever, leukocytosis, and tachycardia. He also has endorgan dysfunction as a relates to urinary retention and associated acute renal failure. Patient will need to be admitted with Ashley catheter in place, IV antibiotics, and plan for operative intervention. With regard to the patient's likely fistula which in these circumstances are almost always transsphincteric, I will also recommend performing colonoscopy for random biopsies to rule out inflammatory bowel disease. Plan going forward is as follows: 1. N.p.o., IV fluids, IV antibiotics. 2. Plan operative intervention to include intraoperative colonoscopy, random biopsies, exam under anesthesia, incision and drainage, likely seton placement, amongst others. 3. 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 4. Pain management. CT abdomen pelvis impressions: 1. Abnormal soft tissue and inflammatory change can be seen within the perianal region. This consistent with the given history of hemorrhoids. Please note an addendum was made and listed abscess should be included in the differential for perianal soft tissue prominence and inflammation. On my review of the imaging there was also concerns for something consistent with a horseshoe abscess. 2. Bilateral hydronephrosis right worse than left. Please note that clinically the patient was noted for obstructive uropathy with significant dilated bladder and a post void residual consistent with 1000 cc. 3. 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 Please note that voice recognition software was used to transcribe this note and inadvertent errors might persist in spite of review and editing. I am obliged to you for your attention. I am thankful to you for allowing me to participate with you in this care of this patient. Patient admitted and underwent the below listed procedures: Procedure type: Exam under anesthesia. Pudental nerve block. Incision and drainage of Perirectal Abscess. Modified Popeye procedure with posterior drainage and bilateral counter incisions. Seton placement. Intraoperative colonoscopy with random biopsies Ileoscopy with random biopsies. Postoperative Diagnosis: Perirectal Abscess. Horseshoe extension of posterior rectal infection Fistula in ano Sepsis Severe anal pain/levator spasm. Early necrotizing infection. Large posterior fissure, chronic, with sentinel tags NO COLITIS/ILEITIS Findings: Description of techniques, and findings: Deep posterior anal space drained via one incision, seton x2 placed through same incision, WITH LARGE VOLUME OF PURULENT DRAINAGE. Bilateral counter incisions made and ANTERIOR EXTENSION NOTED TO BE IN CONTINUITY WITH POSTERIOR abscess cavitY, VIS-A-VIS both communicated to deep posterior anal space. Both lateral incisions packed with gauze. Large volume of purulent drainage produced. Left area, which was region of maximal fullness and induration, revealed a large cavity, with necrotic debris, concerning for early necrotizing infection. EXTENSIVELY WASHED OUT. INTRAOPERATIVE COLONOSCOPY WITH NO ILEITIS, NO COLITIS, NO PROCTITIS. RANDOM BIOPSIES PERFORMED. LARGE posterior fissure that likely fistulized. SKIN/SENTINEL TAGS, POSTERIOR, EXCISED. Postoperative day #1 he was removed for his Ashley catheter, maintained on oral analgesia, maintained on IV antibiotics. Patient was planned for another day for treatment of his sepsis which was anorectal in origin for which cultures were drawn. Postoperatively the patient was managed for postoperative analgesia and resumption of bowel function. Patient had successfully passed trial of void. Tolerated oral intake without any complication. Denied nausea denied vomiting. Was advanced for diet without any complication. Was counseled that given evidence of her shoe abscess with bilateral anterior extension would recommend continued antibiotics for 2 weeks; patient was maintained on antibiotics during the hospital stay. Setons would stay in place and wound care would simply be placement of gauze for any drainage. Discharge instructions given. Analgesia antispasmodics and narcotics provided at time of discharge. Patient plan for follow-up and will be notified of pathology once returned. Obstructive uropathy resolved with intervention for anorectal sepsis. Successful trial of void. Plan treatment with Flomax as well. Please note that voice recognition software was used to transcribe this note and inadvertent errors might persist in spite of review and editing. I am obliged to you for your attention. I am thankful to you for allowing me to participate with you in this care of this patient. - ALLERGIES Allergies/Adverse Reactions: Allergies Allergy/AdvReac Type Severity Reaction Status Date / Time No Known Drug Allergies Allergy Verified 03/20/20 16:24 - MEDICATIONS Home Medications: Ambulatory Orders Medication Instructions Recorded Confirmed Acetaminophen [Tylenol] 500 mg PO Q4HR PRN tablet 03/23/20 Ciprofloxacin HCl [Cipro] 500 mg PO BID #28 tablet 03/23/20 Docusate Sodium 100Mg Capsule 100 mg PO BID #60 capsule 03/23/20 [Colace 100Mg Capsule] Tamsulosin [Flomax] 0.4 mg PO DAILY #30 capsule 03/23/20 methocarbamoL [Robaxin] 500 mg PO Q6HR PRN #60 tablet 03/23/20 metroNIDAZOLE [Flagyl] 500 mg PO Q8HR #42 tablet 03/23/20 oxyCODONE [Roxicodone] 5 mg PO Q6H #28 tablet 03/23/20 polyethylene glycoL 3350 [Miralax] 17 gm PO DAILY #30 packet 03/23/20 - PHYSICAL EXAM AT DISCHARGE General Appearance: positive: No acute distress, Alert Eyes Bilateral: positive: Normal inspection, PERRL, EOMI ENT: positive: ENT inspection nml Neck: positive: Nml inspection Respiratory: positive: Chest non-tender, No respiratory distress, Breath sounds nml. negative: Wheezes, Rales, Rhonchi Cardiovascular: positive: Regular rate & rhythm Peripheral Pulses: positive: 2+ Abdomen: positive: Non-tender, No organomegaly, No distention. negative: Guarding, Rebound Rectal: positive: Non-tender, Other (Anal wounds removed for packing, setons intact, no residual induration or purulent drainage. Sphincteric complex intact with no injury.) Skin: positive: Color nml Extremities: positive: Non-tender, Full ROM, Nml appearance Neurologic/Psychiatric: positive: Oriented x3, CN's nml (2-12) - LABS Result Diagrams: 03/21/20 04:50 03/21/20 04:50 - SEPSIS Current Stage of Sepsis: Resolved Possible source of Sepsis: Other (See culture data, E. coli) Confirmed Source and Organism (if known) of Sepsis: Perianal horseshoe abscess - FOLLOW UP Follow Up: Continue antibiotics. Continue local wound care as described. PLAN: 1. The patient to call for fevers, significant bleeding, severe pain or urinary retention. 2. The patient to proceed with a high-fiber diet as recommended with mechanical fiber supplementation. 3. The patient to proceed with a bowel regimen including Colace, given narcotics for postoperative pain, and MiraLAX for salvage if they fails to have bowel movement within 2 days of operative intervention. If no bowel movement within 3 days, patient to call service/office. 4. Continue with cautious post deprecatory hygiene avoiding medicated wipes, using only moist and toilet paper, and applying moisture barrier such as calmoseptine after bowel movements and after showers. 5. The patient to call with any worrisome symptoms or persistent complaints towards deciding the next step in management. - TIME SPENT Time Spent in Discharge (Minutes): 60
--- NOTE | 2020-03-23 07:52 | Discharge Plan ---
Discharge Plan Problem Reviewed?: Yes Disposition: Home, Self Care Condition: Good Prescriptions: methocarbamoL [Robaxin] 500 mg PO Q6HR PRN #60 tablet PRN Reason: Spasms metroNIDAZOLE [Flagyl] 500 mg PO Q8HR #42 tablet Ciprofloxacin HCl [Cipro] 500 mg PO BID #28 tablet Docusate Sodium 100Mg Capsule [Colace 100Mg Capsule] 100 mg PO BID #60 capsule Tamsulosin [Flomax] 0.4 mg PO DAILY #30 capsule polyethylene glycoL 3350 [Miralax] 17 gm PO DAILY #30 packet Diet: Regular Activity Restrictions: No Restrictions Shower Restrictions: No (Shower at least twice a day and after bowel movements w ith hand-held spray) Driving Restrictions: Yes (Not while taking narcotics) Weight Bearing: Full Weight Instruction Topics: ED Fistula Anal Ch, Perianal Abscess, ED Rachael Anal Abscess IandD Plan of Treatment: DISCHARGE INSTRUCTIONS TEMPLATE: No heavy lifting, pushing, or pulling. Stairs are allowed, no strenuous/exertional activities. 5-10lbs weight carrying limit (i.e. gallon of milk) If provided, abdominal binder while out of bed and while ambulating. Call or proceed to clinic/ER for fevers, severe pain, nausea, vomiting, inability to pass flatus/stool, bleeding, wound redness/discharge, weakness, excessively loose stool/diarrhea, or for any other reasonably worrisome symptom or concern. Soft diet, no raw vegetables, avoid high fiber foods. Colace 100mg by mouth twice to three times daily while taking narcotic pain medication. If no bowel movement in 24-48hr, may take 17g Miralax in 8oz water twice daily until bowel movement. May shower, See below. Follow up in clinic in [address] while taking narcotic pain medications. Follow up with primary care provider and/or medical subspecialist following discharge as well. POST ANORECTAL SURGICAL INSTRUCTIONS: PLAN: 1. Resume anticoagulation, if any, as per specific instructions. Call for any bleeding before resuming anticoagulation. 2. The patient to call for fevers, significant bleeding, severe pain or urinary retention. 3. The patient was advised to remove anal packing on the a.m. of postoperative day #1 (removed in the hospital already). 4. The patient to continue with warm tub soaks twice daily. 5. The patient to proceed with a high-fiber diet as recommended with mechanical fiber supplementation. 6. The patient to proceed with a bowel regimen including Colace, given narcotics for postoperative pain, and MiraLAX for salvage if fails to have bowel movement within 2 days of operative intervention. If no bowel movement within 3 days, patient to call service/office. 7. The patient to follow up with me in 10-14 days post procedure. 8. The patient to continue with antibiotics as instructed if prescribed. 9. No driving while taking narcotics, and avoid exertional activity in the immediate post-operative period. Care Goals: See above. Assessment: See above. Additional Instructions or Follow Up instructions: See above. No Smoking: If you smoke, Please STOP! Call for help. Follow-up with: Jf Singh MD [Provider Admit Priv/Credential] - 2 Weeks (See either Dr. Mi or Dr. Higgins in my stead, leave setons in place.)
[2020-03-23] MEDS: DOCUSATE SODIUM 100 MG CAPSULE PO SCH (08:45)
[2020-03-23] MEDS: D5NS W/20 MEQ KCL 1,000 ML IV SCH ×2 (08:45→17:44)
[2020-03-23] MEDS ORDERED: ACETAMINOPHEN 500 MG TABLET PO PRN (11:44)
[2020-03-23] MEDS ORDERED: DEXAMETHASONE 4 MG/ML VIAL IVP ONE (18:27)
[2020-03-23] MEDS ORDERED: KETOROLAC 30 MG/ML VIAL IVP ONE (18:27)
[2020-03-23] MEDS ORDERED: ONDANSETRON 4 MG/2 ML VIAL IVP ONE (18:27)
[2020-03-23] MEDS ORDERED: LIDOCAINE-MPF 2% 5 ML VIAL IM ONE (18:27)
[2020-03-23] MEDS ORDERED: PROPOFOL 200 MG/20 ML VIAL IVP ONE (18:27)
[2020-03-23] MEDS ORDERED: KETAMINE 500 MG/10 ML VIAL IVP ONE (18:27)
[2020-03-23] MEDS ORDERED: MIDAZOLAM 2 MG/2 ML VIAL IVP ONE (18:27)
[2020-03-23 19:29] VITALS: BP 145/98
== END 2020-03-23 18:28 | disposition home or self-care (01) | DRG 854 ==
LOC: ED 16:18 → MS3 22:56
PROVIDERS: ADMIT Surgery; ATTEND Surgery
PROC: 0D9P0ZZ Drainage of Rectum, Open Approach (ICD-10-PCS; principal; 2020-03-20)
PROC: 0DQQ0ZZ Repair Anus, Open Approach (ICD-10-PCS; 2020-03-20)
PROC: 0D9Q0ZZ Drainage of Anus, Open Approach (ICD-10-PCS; 2020-03-20)
PROC: 0DBB8ZX Excision of Ileum, Via Natural or Artificial Opening Endoscopic, Diagnostic (ICD-10-PCS; 2020-03-20)
PROC: 0DBE8ZX Excision of Large Intestine, Via Natural or Artificial Opening Endoscopic, Diagnostic (ICD-10-PCS; 2020-03-20)
DX: A41.9 Sepsis, unspecified organism (principal); N17.9 Acute kidney failure, unspecified; I96 Gangrene, not elsewhere classified; N13.0 Hydronephrosis with ureteropelvic junction obstruction; K40.00 Bilateral inguinal hernia, with obstruction, without gangrene, not specified as recurrent; K61.31 Horseshoe abscess; R65.20 Severe sepsis without septic shock; M62.838 Other muscle spasm; K64.4 Residual hemorrhoidal skin tags; Q62.5 Duplication of ureter; F17.200 Nicotine dependence, unspecified, uncomplicated
CPT/HCPCS: 36415; 51702; 51798; 74177; 80053; 81003; 81599; 83605; 83690; 85025; 96365; 96366; 96368; 96375; 96376; A9270; J0131; J1170; J2765; J7120; Q9967; 81001; 87070; 87086; 87205

== ENCOUNTER 2020-05-13 16:14 | Outpatient (CLI) | payer MEDICAID | END 2020-05-13 16:15 | disposition home or self-care (01) | LOC: COV 16:14 | PROVIDERS: ATTEND Surgery | DX: Z01.812 Encounter for preprocedural laboratory examination (principal); Z20.828 Contact with and (suspected) exposure to other viral communicable diseases; K60.3 Anal fistula ==

== ENCOUNTER 2020-05-17 06:28 | Day surgery (SDC) | payer MEDICAID ==
[2020-05-17] MEDS ORDERED: CIPROFLOXACIN 400 MG/200 ML 400 MG/200 ML BAG IV ONE (06:30)
[2020-05-17] MEDS ORDERED: metroNIDAZOLE 500 MG/100 ML 500 MG/100 ML BAG ONE (06:31)
[2020-05-17] MEDS ORDERED: LACTATED RINGERS 1,000 ML IV ONE ×2 (06:34→10:20)
[2020-05-17] MEDS ORDERED: LIDOCAINE JELLY 2% 6 ML JEL.PF.APP ONE (07:03)
[2020-05-17] MEDS ORDERED: BUPIVACAINE 0.5%-EPI 1:200000 PF 30 ML VIAL ONE (07:04)
--- NOTE | 2020-05-17 07:15 | ANESTHESIA ---
Pre-Anesthesia VS, & Labs - Diagnosis fistula in anus transsphinctoric - Procedure eua, advancement flap/fistulotomy Vital Signs: Temp Pulse Resp BP Pulse Ox 36.2 C L 63 18 148/93 H 98 05/17/20 06:49 05/17/20 06:49 05/17/20 06:49 05/17/20 06:49 05/17/20 06:49 Height: 5 ft 10 in Weight (kg): 95.4 kg Body Mass Index: 30.2 BMI Classification: Obese - NPO >8 hours Home Medications and Allergies Home Medications: Ambulatory Orders No Known Home Medications 05/09/20 No Known Home Medications 05/09/20 Allergies/Adverse Reactions: Allergies Allergy/AdvReac Type Severity Reaction Status Date / Time No Known Drug Allergies Allergy Verified 03/20/20 16:24 Anes History & Medical History - Anesthetic History Anesthesia Complications: reports: No previous complications - Medical History Cardiovascular: reports: None Pulmonary: reports: None Gastrointestinal: reports: None, Hemorrhoids Urinary: reports: Kidney stones (history of) Neuro: reports: None Musculoskeletal: reports: None Endocrine/Autoimmune: reports: None Blood Disorders: reports: None Skin: reports: None Smoking Status: Never smoker Psychosocial: reports: No issues indicated History of Cancer?: No - Surgical History General: Colonoscopy, Other Exam General: Alert, Oriented x3, Cooperative, No acute distress Dental: WNL Mouth Openin Fingerbreadth Neck Mobility: Normal Mallampati classification: III Thyromental Distance: 4-6 cm Respiratory: Lungs clear, Normal breath sounds, No respiratory distress, No accessory muscle use Cardiovascular: Regular rate, Normal S1, Normal S2, No murmurs Mental/Cognitive Status: Alert/Oriented X3, Normal for patient Plan Anesthesia Type: General Consent for Procedure(s) Verified and Reviewed: Yes Code Status: Attempt Resuscitation ASA classification: 2-Mild systemic disease Is this case an emergency?: No
[2020-05-17 07:33] LABS: C. PNEUMONIAE- RESP PCR PANEL NOT DETECTED
[2020-05-17] MEDS ORDERED: ONDANSETRON 4 MG/2 ML VIAL IVP ONE (08:02)
[2020-05-17] MEDS ORDERED: DEXAMETHASONE 4 MG/ML VIAL IVP ONE (08:02)
[2020-05-17] MEDS ORDERED: ACETAMINOPHEN 1,000 MG/100 ML 100 ML IV ONE (08:02)
[2020-05-17] MEDS ORDERED: ePHEDrine 50 MG/ML VIAL IVP ONE (08:02)
[2020-05-17] MEDS ORDERED: PROPOFOL 200 MG/20 ML VIAL IVP ONE (08:02)
[2020-05-17] MEDS ORDERED: fentaNYL 100 MCG/2 ML VIAL IVP ONE (08:02)
[2020-05-17] MEDS ORDERED: LIDOCAINE-MPF 2% 5 ML VIAL IM ONE (08:02)
[2020-05-17] MEDS ORDERED: MIDAZOLAM 2 MG/2 ML VIAL IVP ONE (08:02)
[2020-05-17] MEDS ORDERED: ROCURONIUM 50 MG/5 ML VIAL IVP ONE (08:02)
[2020-05-17] MEDS ORDERED: KETOROLAC 30 MG/ML VIAL IVP ONE (08:02)
[2020-05-17] MEDS ORDERED: GLYCOPYRROLATE 1 MG/5 ML VIAL IVP ONE (08:02)
[2020-05-17] MEDS ORDERED: LIDOCAINE 1% 50 ML MDV ONE (08:31)
[2020-05-17] MEDS ORDERED: BUPIVACAINE 0.25% PF 30 ML VIAL ONE (08:31)
[2020-05-17] MEDS ORDERED: NALOXONE 0.4 MG/ML VIAL IVP PRN (08:35)
[2020-05-17] MEDS ORDERED: MORPHINE 2 MG/ML CARPUJECT IVP PRN (08:35)
[2020-05-17] MEDS ORDERED: ePHEDrine 50 MG/ML VIAL IVP PRN (08:35)
[2020-05-17] MEDS ORDERED: fentaNYL 100 MCG/2 ML VIAL IVP PRN (08:35)
[2020-05-17] MEDS ORDERED: HYDROmorphone 0.5 MG/0.5 ML SYRINGE IVP PRN (08:35)
[2020-05-17] MEDS ORDERED: METOCLOPRAMIDE 10 MG/2 ML VIAL IVP PRN (08:35)
[2020-05-17] MEDS ORDERED: ONDANSETRON 4 MG/2 ML VIAL IVP PRN ×2 (08:35→10:24)
[2020-05-17] MEDS ORDERED: ATROPINE ABBOJECT 1 MG/10 ML SYRINGE IVP PRN (08:35)
[2020-05-17] MEDS ORDERED: BUPIVACAINE 0.25% PF 30 ML VIAL SUBQ ONE (08:50)
[2020-05-17] MEDS ORDERED: LIDOCAINE 1% 50 ML MDV SUBQ ONE (08:50)
[2020-05-17] MEDS ORDERED: HYDROGEN PEROXIDE 3% 473 ML BOTTLE TOP ONE (08:54)
[2020-05-17] MEDS ORDERED: LACTATED RINGERS 1,000 ML IV SCH (09:00)
[2020-05-17] MEDS ORDERED: SUGAMMADEX 200 MG/2 ML VIAL IVP ONE (09:43)
[2020-05-17] MEDS ORDERED: LACTATED RINGERS 350 ML IV ONE (09:49)
[2020-05-17] MEDS ORDERED: HYDROmorphone 0.5 MG/0.5 ML SYRINGE ONE (10:00)
[2020-05-17] MEDS ORDERED: fentaNYL 100 MCG/2 ML VIAL ONE (10:15)
--- NOTE | 2020-05-17 10:18 | OPERATIVE REPORT ---
Operative Report - General Procedure Date: 05/17/20 Planned Procedure: 1. Exam under anesthesia 2. Pudendal block 3. Advancement flap anoplasty 4. Partial fistulectomy 5. Debridement Pre-Op Diagnosis: Horseshoe abscess, history of perianal sepsis, status post modified Popeye Procedure Performed: 1. Exam under anesthesia 2. Pudendal block 3. [place] Advancement flap anoplasty 4. Partial fistulectomy with fissurectomy as well 5. Debridement of fistula tract Post Op Diagnosis: Same, large posterior fissure incorporated in reconstructive flap anoplasty - Procedure Note Primary Surgeon: Francisco Secondary Surgeon: Meir Anesthesia Provider: Hari Anesthesia Technique: General ET tube, Local Pathology: Internal opening of transphincteric fistula in anal, posterior Estimated Blood Loss (mL): 50 Drain/Tube Type: Other (1. Ashley catheter in place. 2. Anal packing with Gelfoam wrapped in Surgicel in the manner of a tampon secured with silk suture and placed within the anus) Indications: 1. 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 Status post modified Popeye 3. High risk for incontinence with conventional fistulotomy along with a keyhole deformity 4. Status post seton placement 5. 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 Viable kt island advancement flap anal plasty addressing the historic mature epithelialized tract that was debrided and partially excised. Hemostatic. Complications: NONE - Other Other Information/Narrative: Pending final full operative report
[2020-05-17] MEDS ORDERED: oxyCODONE 5 MG TABLET PO PRN (10:24)
[2020-05-17] MEDS: LACTATED RINGERS 1,000 ML IV SCH ×2 (11:00→18:29)
--- NOTE | 2020-05-17 11:10 | ANESTHESIA POST OP EVALUATION ---
Anesthesia Post Eval - Post Anesthesia Eval Vitals: Last Vital Signs Temp 36.6 C 05/17/20 10:55 Pulse 62 05/17/20 11:00 Resp 10 L 05/17/20 11:00 BP 124/76 05/17/20 11:00 Pulse Ox 95 05/17/20 11:00 CV Function Including HR & BP: positive: Stable Pain Control: positive: Satisfactory Nausea & Vomiting: positive: Negative Mental Status: positive: Baseline Respiratory Status: Airway Patent Hydration Status: Satisfactory Anesthesia Complications: positive: None
[2020-05-17] MEDS: ACETAMINOPHEN 1,000 MG/100 ML 100 ML IV SCH ×2 (11:46→17:34)
[2020-05-17] MEDS: KETOROLAC 30 MG/ML VIAL IVP SCH ×2 (11:46→17:35)
[2020-05-17] MEDS: TAMSULOSIN 0.4 MG CAPSULE PO SCH (11:47)
[2020-05-17] MEDS: methocarbamoL 500 MG TABLET PO SCH ×2 (11:48→17:35)
[2020-05-17] MEDS: DOCUSATE SODIUM 100 MG CAPSULE PO SCH (21:09)
[2020-05-17] MEDS: PREGABALIN 100 MG CAPSULE PO SCH (21:09)
[2020-05-17] MEDS: polyethylene glycoL 3350 17 GM PACKET PO SCH (21:09)
[2020-05-18] MEDS: KETOROLAC 30 MG/ML VIAL IVP SCH ×2 (00:46→06:45)
[2020-05-18] MEDS: ACETAMINOPHEN 1,000 MG/100 ML 100 ML IV SCH ×2 (00:48→06:43)
[2020-05-18] MEDS: methocarbamoL 500 MG TABLET PO SCH ×2 (00:49→06:46)
[2020-05-18] MEDS: LACTATED RINGERS 1,000 ML IV SCH (04:55)
[2020-05-18 07:04] LABS: BASOPHILS % (AUTO) 0.1 %; EOSINOPHILS # (AUTO) 0.1 10^3/uL (0.0-0.7); EOSINOPHILS % (AUTO) 0.8 %; HGB - HEMOGLOBIN 11.9 g/dL (14.0-18.0); LYMPHOCYTES # (AUTO) 1.9 10^3/uL (1.5-3.5); LYMPHOCYTES % (AUTO) 19.1 %; MEAN CORPUSCULAR HEMOGLOBIN 28.9 pg (27.0-31.0); MEAN CORPUSCULAR HGB CONC 32.6 g/dL (32.0-36.0); MEAN CORPUSCULAR VOLUME 88.6 fL (80.0-94.0); MEAN PLATELET VOLUME 8.8 fL (7.4-11.4); MONOCYTES # (AUTO) 0.6 10^3/uL (0.0-1.0); MONOCYTES % (AUTO) 5.7 %; NEUTROPHILS # (AUTO) 7.4 10^3/uL (1.5-6.6); PLT - PLATELET COUNT 275 10^3/uL (130-450); RED BLOOD COUNT 4.12 10^6/uL (4.70-6.10); RED CELL DISTRIBUTION WIDTH 13.7 % (12.0-15.0)
[2020-05-18 07:17] LABS: ALBUMIN/GLOBULIN RATIO 1.2 (1.0-2.2); BILIRUBIN,TOTAL 0.5 mg/dL (0.2-1.0); CALCIUM 8.5 mg/dL (8.5-10.3); CREATININE 0.9 mg/dL (0.6-1.2); TOTAL PROTEIN 5.5 g/dL (6.7-8.2)
[2020-05-18 08:58] VITALS: BP 122/67
[2020-05-18] MEDS: PREGABALIN 100 MG CAPSULE PO SCH (09:12)
[2020-05-18] MEDS: DOCUSATE SODIUM 100 MG CAPSULE PO SCH (09:12)
[2020-05-18] MEDS: TAMSULOSIN 0.4 MG CAPSULE PO SCH (09:12)
[2020-05-18] MEDS: polyethylene glycoL 3350 17 GM PACKET PO SCH (09:12)
== END 2020-05-18 13:45 | disposition home or self-care (01) ==
LOC: SDS 06:28 → ICU 10:58 → OBS 21:09 → SDS 05-18 13:45
PROVIDERS: ATTEND Surgery
PROC: 0DBQ0ZZ Excision of Anus, Open Approach (ICD-10-PCS; principal; 2020-05-17 07:30)
DX: K60.3 Anal fistula (principal); Z20.828 Contact with and (suspected) exposure to other viral communicable diseases
CPT/HCPCS: 0202U; 36415; 46288; 80053; 85025; 87150; 88304; A9270; J0131; J1170; J7120